=== PATIENT | female | born 1985 | race Caucasian/White ===

== ENCOUNTER 2016-07-16 15:01 | Emergency (ER) | payer BC ==
[2016-07-16 15:47] VITALS: RESP 15; TEMP 97.3
--- NOTE | 2016-07-16 22:54 | PDOC ---
Sore Throat/Dental Pain HPI - General Chief Complaint: Nasal/Mouth Problem /Injury Stated Complaint: Dental Pain Date Seen by Provider: 07/16/16 Time Seen by Provider: 15:05 Source: POSITIVE: Patient Exam Limitations: POSITIVE: No limitations Nurse's Notes Reviewed & Considered: Yes - History of Present Illness Initial Comments: The patient is a 30-year-old female who presents to the emergency department with dental pain. She reports that she has a left lower molar that needs a root canal. She has been seeing the dentist and was referred to a specialist in [place] for root canal. She is not scheduled to have this done until next week. She reports that she just finished a course of penicillin several days ago. Since then the pain has intensified. She has been taking ibuprofen 800 mg alternated with Tylenol without any relief. She denies fevers or chills, difficulty swallowing or any other associated complaints. - Patient Home Medications Home Medications: Home Medications Pnv Cmb#21/Iron/Folic Acid [ Complete Caplet] 1 each PO DAILY tab 02/15 Citalopram Hydrobromide [Citalopram Hbr] 1 tab PO DAILY #30 tab 07/03/16 Levonorgestrel-Ethin Estradiol [Aviane-28 Tablet] 1 tab PO DAILY #3 packet 07/03 Clindamycin HCl 150 mg PO TID #21 capsule 07/16/16 Hydrocodone/Acetaminophen [Walbridge 7.5-325 Tablet] 1 - 2 each PO Q6H #20 tablet - Patient Allergies Allergies/Adverse Reactions: Allergies Allergy/AdvReac Type Severity Reaction Status Date / Time codeine [Codeine] AdvReac stomach Verified 07/16/16 15:24 pain Past Medical History - heen HEENT History: Denies History Cardiovascular History: Denies History Respiratory History: Snoring Gastrointestinal History: Gallbladder Disease Additional Gastrointestinal History: removed 2007 Genitourinary History: Denies History Endocrine History: Other (please comment) Additional Endocrine History: "hyperglycemia" Musculoskeletal History: Denies History Prosthesis or Implant: No Neurological History: Migraines, Frequent Headaches Blood Disorders: Denies History Psychiatric History: Depression Additional Psychiatric History: ADDICTED TO VICODIN AND PERCOCET SINCE GB SURGERY. CLEAN SINCE AUG 2013 History of Sexually Transmitted Diseases: No LMP: 6 MONTHS AGO Cancer History: Denies History In Past Year Been Physically Harmed or Verbally Threatened: No (PER PATIENT) History of MDRO: No History of Other Communicable Diseases: No Tobacco Use: Never Smoker Alcohol Use: Occasionally Substance Use Type: None, Opiate Pain Medication Previous Surgical History: Yes Type / Date of Surgery: GB 2008 cryo cervix 2013, LAP MARLYS Anesthesia Reactions: No Malignant Hyperthermia: No Family History of Malignant Hyperthermia: No Significant Family History: Asthma, Heart disease, Diabetes, Hypertension, Seizures Past Medical History Reviewed: Reviewed - No Changes ROS - Limitations ROS Limitations: No Limitations Constitution: DENIES: Chills, Fever Cardiovascular: REPORTS: Denies Cardiac Symptoms Respiratory: REPORTS: Denies Resp Symptoms Neurological: REPORTS: Denies Neuro Symptoms Gastrointestinal: REPORTS: Denies GI Symptoms Sore Throat/Dental Pain Exam - General Appearance General Appearance: REPORTS: Alert, Cooperative, No Acute Distress - HEENT Head / Face: POSITIVE: No Facial Swelling Eyes: POSITIVE: Inspection Normal Ears: POSITIVE: Ears Normal Inspection Nose: POSITIVE: Inspection Normal Oropharynx: POSITIVE: Other (She does have a left lower molar that has a previous filling, there is really not any obvious visible swelling or erythema around the tooth) Neck: POSITIVE: Supple, Normal Inspection, Other (1 mildly enlarged tender node in the left anterior cervical region) - Respiratory Respiratory: REPORTS: No Respiratory Distress, Breath Sounds Normal - Cardiovascular Cardiovascular: REPORTS: Regular Rate and Rhythm, Heart Sounds Normal Sore Throat/Dental Progress - Patient's Progress MDM / ED Course: The patient presents with increased dental pain and is scheduled for root canal. Her pain seems to have worsened after she ran out of antibiotics by her report. I subsequently had written prescriptions for clindamycin as well as Walbridge. These were sent electronically to the pharmacy. While the patient was still here the pharmacist called and was concerned about the narcotic prescription. He stated that she had filled a prescription for Ultram 100 tablets 3 days ago. In addition she was under investigation for a prescription alteration. I subsequently discussed this with the patient. She stated that she returned her Ultram because it causes some itching in her throat and she is not taking this medication. And she stated that she was under investigation secondary to an altered prescription however she states that this was altered by her nephew and was a prescription for control pills. I did talk with the pharmacist again and he stated that the questionable altered prescription came from the dentist and I question whether this would be a control prescription. 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 I discussed with her that I was concerned about narcotic misuse and I'm not comfortable prescribing any narcotic pain medications under the circumstances. Clinically she does not have any visible swelling around the tooth in question concerning for serious infection or abscess. She very well may have an issue requiring root canal. I did prescribed clindamycin 150 mg 3 times a day for 7 days which she was advised to start. She is advised to continue ibuprofen 800 mg no more than 3 times a day as well as Tylenol for breakthrough pain. She will return if increased facial swelling, fever, difficulty swallowing or any worsening. She was advised follow-up with her dentist for the root canal. - Consult Counseled: POSITIVE: Patient, RE: DX, RE: Need for F/U Patient Care Time - Estimated PCT Patient Care Time (In Minutes): 20 Vital Signs - Recent Vital Signs Vital Signs: Vital Signs (Last 8 hours) Temp Pulse Resp BP Pulse Ox 07/16/16 15:01 97.3 F 86 15 114/82 93 - VS Reviewed Vital Signs Reviewed: Yes Discharge Clinical Impression: Dental abscess Condition: Good Prescriptions / Orders: Clindamycin HCl 150 mg PO TID #21 capsule Hydrocodone/Acetaminophen [Walbridge 7.5-325 Tablet] 1 - 2 each PO Q6H #20 tablet Patient Instructions Given at Discharge: Dental Abscess (ED), Toothache (ED) Additional Instructions: Clindamycin 150 mg 3 times a day for 7 days. Continue ibuprofen 800 mg every 8 hours as needed for pain. Tylenol thousand milligrams every 6 hours as needed for pain. Return to the emergency room if increased pain, increased swelling, fevers or chills, difficulty swallowing, any worsening or change in symptoms. Follow-up with dentist as previously arranged. Follow Up With: LOS BALLESTEROS [Primary Care Provider] -
== END 2016-07-16 15:55 | disposition home or self-care (01) ==
LOC: ER 15:01
DX: K04.7 Periapical abscess without sinus (principal)
CPT/HCPCS: 99282